=== PATIENT | male | born 1965 | race Caucasian/White ===

== ENCOUNTER 2017-11-12 08:02 | Outpatient (CLI) | payer OTHER ==
--- NOTE | 2017-11-12 10:37 | XRAY Report ---
Procedure Date: 11/12/2017 Accession Number: [id number] / [id number] Procedure: XR - Hip w/Pelvis 2-3V RT CPT Code: FULL RESULT: EXAM: Hip w/Pelvis 2-3V RT DATE: 11/12/2017 10:28 AM CLINICAL HISTORY: Z00.00, PAIN IN RT HIP COMPARISON: None. TECHNIQUE: 1 view of the pelvis and 1 view of the hip. FINDINGS: Bones: Normal. No fracture or bone lesion. Joints: Status post left total hip arthroplasty without evidence of hardware failure, limited visualization distal tip of the stem is not seen. There is moderate joint space loss of the right femoral acetabular joint. Soft Tissues: Normal. No soft tissue swelling. IMPRESSION: Degenerative changes of the right hip as described. [facility]
--- NOTE | 2017-11-12 10:39 | XRAY Report ---
Procedure Date: 11/12/2017 Accession Number: [id number] / [id number] Procedure: XR - Lumbar Spine Complete CPT Code: FULL RESULT: EXAM: Lumbar Spine Complete DATE: 11/12/2017 10:28 AM CLINICAL HISTORY: Z00.00, PAIN IN RT HIP COMPARISON: None. TECHNIQUE: 2 views. FINDINGS: Alignment: Mild dextroconvex lumbar scoliosis. Bones: Five csx-yqi-phglbge lumbar vertebral bodies are present. No fractures or bone lesions. Disks: Multilevel degenerative changes of the lumbar spine with loss of disc space height and endplate sclerosis with marginal osteophytes. Facets: No degenerative changes. Sacroiliac Joints: Unremarkable. Soft Tissues: Normal. The visualized bowel gas pattern is normal. IMPRESSION: Dextroscoliosis with multilevel degenerative changes of lumbar spine. [facility]
[2017-11-12 12:01] LABS: BUN - BLOOD UREA NITROGEN 15 mg/dL (6-20); CARBON DIOXIDE - CO2 26 mmol/L (21-32); CHLORIDE 106 mmol/L (101-111); CHOL/HDL RATIO 3.8 (<5.0); CHOLESTEROL 215 mg/dL; CREATININE 0.8 mg/dL (0.6-1.2); GFR - MDRD 102 (>89); GLUCOSE 104 mg/dL (70-100); HDL CHOLESTEROL 57 mg/dL; LDL CHOLESTEROL,CALCULATED 125 mg/dL; LDL/HDL RATIO 2.2 (<3.6); SODIUM 140 mmol/L (135-145); VLDL CHOLESTEROL 33 mg/dL
== END 2017-11-12 08:03 | disposition home or self-care (01) ==
LOC: LAB.F 08:02 → DI 08:03
PROVIDERS: ATTEND Internal Medicine
DX: Z00.00 Encounter for general adult medical examination without abnormal findings (principal); M16.11 Unilateral primary osteoarthritis, right hip; Z96.642 Presence of left artificial hip joint; M51.36 Other intervertebral disc degeneration, lumbar region; M41.86 Other forms of scoliosis, lumbar region
CPT/HCPCS: 36415; 72110; 80048; 80061; 83721

== ENCOUNTER 2018-03-12 07:29 | Outpatient (CLI) | payer OTHER ==
--- NOTE | 2018-03-12 14:59 | MRI Report ---
Reason: CHRONIC LBP W/RT RADICULOPATHY(L5) Procedure Date: 03/12/2018 Accession Number: [id number] / [id number] Procedure: MRI - Lumbar Spine W/O CPT Code: FULL RESULT: EXAM: MRI LUMBAR SPINE WITHOUT CONTRAST EXAM DATE: 03/12/2018 08:11 AM. CLINICAL HISTORY: Chronic low back pain with right radiculopathy(L5). Low back pain with right L5 radiculopathy. COMPARISON: LUMBAR SPINE COMPLETE 11/12/2017 10:01 AM. TECHNIQUE: Multiplanar, multisequence T1-weighted and fluid-sensitive sequences of the lumbar spine from T12 to S1 without contrast. Other: None. FINDINGS: Spinal Canal: The conus terminates at T12-L1. The conus medullaris and cauda equina are unremarkable. Alignment: Mild, 16 degree, dextrorotatory scoliosis is seen centered at L2. Minimal multilevel listhesis is seen, includin mm spondylolisthesis at L4-L5, 2 mm retrolisthesis at L1-L2. Bone Marrow: Five qsz-yzz-ytzwsjg lumbar vertebral bodies are assumed. No acute fractures or bone lesions. No bone marrow replacement. Old mild compression deformities of the L2 and T11 superior endplates is seen. Concavity is noted. No bone marrow or paraspinous edema is seen. An oval 13 mm hemangioma is noted in the L1 vertebral body. Disk Levels/Facets: T12-L1: Unremarkable. L1-L2: Minimal retrolisthesis. Minimal dorsal disk bulge is seen. Mild anterior bulge of disk/osteophyte complex. No stenosis. L2-L3: Minimal lateral and ventral disk bulge is seen. Mild asymmetric left lateral disk bulge is noted within the concavity of the scoliotic curvature. No stenosis. L3-L4: Moderate loss of disk space height is seen with T2 hypointense disk signal. Mild circumferential disk bulge is seen. Asymmetric moderate left lateral osteophyte formation is seen. Effacement of the ventral thecal sac and descending L4 nerve roots is seen. Mild bilateral proximal lateral recess stenosis. Effacement of exited left L3 nerve root lateral to the foramen is noted. No foraminal stenosis. L4-L5: Mild degenerative facet change. Minimal spondylolisthesis. Moderate loss of disk space height. Vacuum cleft phenomenon and T2 hypointense disk signal. Right lateral diskogenic endplate irregularity and signal abnormality. Mild circumferential disk bulge. Moderate asymmetric right lateral protrusion of disk/osteophyte complex. Mild effacement of the thecal sac and descending L5 nerve roots. Mild right lateral recess stenosis. Effacement of exited right L4 nerve root lateral to the foramen is noted. No central foraminal stenosis. L5-S1: Unremarkable. Mild degenerative facet change. Musculature: Normal. No edema or fatty atrophy. Other: The partially visualized retroperitoneum is unremarkable. Note is made of an exophytic oval 22 mm cyst projected posteriorly from the upper pole of the left kidney. IMPRESSION: 1. Mild dextrorotatory scoliosis centered at L2. 2. Spondylosis throughout the lumbar spine. Minimal spondylolisthesis at L4-L5. Minimal retrolisthesis at L1-L2. 3. L4-L5: Effacement of exited right L4 nerve root lateral to the foramen. This is secondary to asymmetric right lateral protrusion of disk/osteophyte complex. Right mild lateral recess stenosis. 4. L3-L4: Spondylosis. Bilateral mild proximal lateral recess stenosis. Comment: The following findings are so common in adults without low back pain that while we report their presence, they must be interpreted with caution and in the context of the clinical situation. (Reference Nellk et al, Spine 2001) Prevalence of findings in patients without low back pain: Disk degeneration (any evidence): 92% Disk desiccation/T2 signal loss: 83% Disk height loss: 56% Disk bulge: 64% Disk protrusion: 32% Annular tear/high intensity zone: 38% [facility]
== END 2018-03-12 07:30 | disposition home or self-care (01) ==
LOC: DI 07:29
PROVIDERS: ATTEND Orthopaedic Surgery
DX: M51.36 Other intervertebral disc degeneration, lumbar region (principal); M47.9 Spondylosis, unspecified; M43.16 Spondylolisthesis, lumbar region; M41.9 Scoliosis, unspecified
CPT/HCPCS: 72148

== ENCOUNTER 2018-04-25 16:47 | Emergency (ER) | payer OTHER ==
[2018-04-25 17:26] VITALS: BP 127/79
[2018-04-25] MEDS ORDERED: oxyCODONE 5 MG TABLET PO STA (17:49)
--- NOTE | 2018-04-25 17:51 | ED Physician Documentation ---
PD HPI UPPER EXT INJURY - Stated complaint Stated Complaint: SHOULDER PX - Chief complaint Chief Complaint: Ext Problem - History obtained from History obtained from: Patient - History of Present Illness Location: Right, Shoulder Type of injury: Other (He was lifting boxes today and felt a pop across the top of the right shoulder now severe pain and cannot lift it anymore. He has a history of rotator cuff problems on the other side with a surgery. No previous problems with the right shoulder.) Review of Systems Constitutional: denies: Fever, Chills Cardiac: denies: Chest pain / pressure, Palpitations Respiratory: denies: Dyspnea, Cough GI: reports: Reviewed and negative PD PAST MEDICAL HISTORY - Present Medications Home Medications: Ambulatory Orders Medication Instructions Recorded Confirmed Oxycodone HCl/Acetaminophen 1 - 2 each PO Q6H PRN #14 tablet 04/25/18 [Percocet 5-325 mg Tablet] RX: Meloxicam 15 mg PO DAILY 04/25/18 04/25/18 - Allergies Allergies/Adverse Reactions: Allergies Allergy/AdvReac Type Severity Reaction Status Date / Time No Known Drug Allergies Allergy Verified 04/25/18 17:26 PD ED PE NORMAL - Vitals Vital signs reviewed: Yes - General General: Alert and oriented X 3, No acute distress - Neck Neck: Supple, no meningeal sign, No bony TTP - Extremities Extremities: Other (Right shoulder is without tenderness or deformity but he cannot abduct at all. He has significant pain with forced internal or external rotation and positive supraspinatus testing. He has normal neurovascular function in the hand and over the deltoid.) - Neuro Neuro: Alert and oriented X 3, Normal speech Results - Vitals Vitals: Vital Signs - 24 hr 04/25/18 17:24 Temperature 36.3 C L Heart Rate 55 L Respiratory 16 Rate Blood Pressure 127/79 O2 Saturation 97 Oxygen O2 Source Room air - Rads (name of study) 3v R shoulder Radiology: EMP read contemporaneously (DJD< no frx) PD MEDICAL DECISION MAKING - ED course ED course: 52-year-old gentleman with clinically what sounds very consistent with a right rotator cuff tear. X-rays were negative for acute pathology. He was placed in a sling but we discussed the limitations of a sling and the need for range of motion exercises. Departure - Departure Disposition: 01 Home, Self Care Clinical Impression: Rotator cuff tear, right Condition: Good Record reviewed to determine appropriate education?: Yes Instructions: ED Torn Rotator Cuff Follow-Up: [facility] [Provider Group] - Within 1 week Prescriptions: Oxycodone HCl/Acetaminophen [Percocet 5-325 mg Tablet] 1 - 2 each PO Q6H PRN #14 tablet PRN Reason: pain Comments: He can wear the sling for comfort for a day or 2 but you have to come out of it a couple of times a day to do exercises as shown. Return for new or worsening symptoms. Follow-up with the orthopedics clinic, call tomorrow for an appointment. Do not wear the sling for more than 2-3 days[address] not drink or drive while taking narcotic pain medication. Note that many narcotic pain relievers also contain Tylenol/acetaminophen. Please ensure that your total dose of acetaminophen from all sources does not exceed 3 g (3000 mg) per day. You may get constipated while on this medication. Take a stool softener such as Colace twice a day while you are on it. Also add an sock-jyl-qrkyahm laxative such as senna or MiraLAX on any day that you do not have a bowel movement. If you received a narcotic pain medication or sedative while in the emergency department, do not drive for the next 24 hours. Forms: Activity restrictions Discharge Date/Time: 04/25/18 18:26
--- NOTE | 2018-04-25 19:12 | XRAY Report ---
Reason: Pain Procedure Date: 04/25/2018 Accession Number: [id number] / [id number] Procedure: XR - Shoulder 3 View RT CPT Code: FULL RESULT: EXAM: RIGHT SHOULDER RADIOGRAPHY EXAM DATE: 04/25/2018 06:17 PM. CLINICAL HISTORY: Sudden right shoulder pain when lifting a box. COMPARISON: None. TECHNIQUE: 3 views. FINDINGS: Bones: No fracture or bone destructive process. Joints: No subluxation. Mild glenohumeral DJD. Glenohumeral appears unremarkable. Unremarkable acromiohumeral interval. Soft tissues: No definite periarticular calcification identified. IMPRESSION: 1. Mild acromioclavicular DJD. 2. No fracture or dislocation. [facility]
== END 2018-04-25 18:26 | disposition home or self-care (01) ==
LOC: ED 16:47
DX: M75.101 Unspecified rotator cuff tear or rupture of right shoulder, not specified as traumatic (principal); X50.0XXA Overexertion from strenuous movement or load, initial encounter
CPT/HCPCS: 73030; 99283; A9270

== ENCOUNTER 2018-06-08 14:42 | Outpatient (CLI) | payer OTHER ==
--- NOTE | 2018-06-09 13:50 | MRI Report ---
Reason: RT SHOULDER PAIN Procedure Date: 06/08/2018 Accession Number: [id number] / [id number] Procedure: MRI - Shoulder RT W/O CPT Code: FULL RESULT: EXAM: RIGHT SHOULDER MRI WITHOUT CONTRAST EXAM DATE: 06/08/2018 03:42 PM. CLINICAL HISTORY: Right shoulder pain after lifting boxes. COMPARISON: SHOULDER 3 VIEW RT 04/25/2018 6:02 PM. TECHNIQUE: Multiplanar, multisequence T1-weighted and fluid-sensitive sequences of the shoulder without contrast. Other: None. FINDINGS: Acromioclavicular Region: The acromion is type II. Mild osteoarthritis acromioclavicular joint with mild spurring. Acromioclavicular joint is without increased fluid. The coracoacromial and coracoclavicular ligaments are intact. Moderate quantity of fluid subacromial subdeltoid bursa. Glenohumeral Region: No subluxation. No effusion or loose bodies. Mild chondromalacia glenohumeral joint. The glenohumeral ligaments and joint capsule are unremarkable. Bone Marrow: No fracture, marrow edema or bone lesions. Labrum: The labrum is unremarkable on this nonarthrographic study. Musculature/Rotator Cuff: Complete tear distal supraspinatus tendon 1.5 cm in AP dimension and 1.7 cm in transverse dimension. Extensive interstitial tear of the infraspinatus tendon with complete partial-width tears anterior aspect and posterior aspect. Negative for subscapularis tendon tear. Supraspinatus muscle and the sub-scapularis muscle are without edema or atrophy. Edema is noted of the infraspinatus muscle. Teres minor tendon is intact. Teres minor muscle is negative for edema. Biceps Tendon: The biceps anchor is intact. Normal caliber low signal biceps tendon bicipital groove. Increase fluid biceps tendon sheath. Negative for biceps ang lesion. Other: The subcutaneous tissues are unremarkable. IMPRESSION: 1. Complete tear is noted of the supraspinatus tendon 1.7 cm in transverse dimension and 1.5 cm in AP dimension. 2. There is extensive diffuse interstitial tear infraspinatus musculotendinous junction and the infraspinatus tendon with infraspinous muscle edema and probable partial width complete tears anterior aspect and posterior aspect distal infraspinatus tendon. 3. Moderate quantity of fluid subacromial subdeltoid bursa. [facility] MUSCULOSKELETAL RADIOLOGY SECTION
== END 2018-06-08 14:43 | disposition home or self-care (01) ==
LOC: DI 14:42
PROVIDERS: ATTEND Orthopaedic Surgery
DX: M75.121 Complete rotator cuff tear or rupture of right shoulder, not specified as traumatic (principal)

== ENCOUNTER 2018-06-08 17:00 | Outpatient (CLI) | payer OTHER ==
--- NOTE | 2018-06-09 13:58 | MRI Report ---
Reason: PAIN IN RIGHT HIP DOWM THIGH Procedure Date: 06/08/2018 Accession Number: [id number] / [id number] Procedure: MRI - Hip RT W/O CPT Code: FULL RESULT: EXAM: RIGHT HIP MRI WITHOUT CONTRAST EXAM DATE: 06/08/2018 04:16 PM. CLINICAL HISTORY: Pain in right hip down thigh. Right leg numbness in toes. Right hip pain with pain extending into right leg. COMPARISON: HIP W/PELVIS 2-3V RT 11/12/2017 10:01 AM. TECHNIQUE: Multiplanar, multisequence T1-weighted and fluid-sensitive, small vjeps-tr-mvav sequences of the hip and large kgunw-ew-rhel sequences of the pelvis without contrast. Other: None. FINDINGS: Bones: No fractures or subluxations. No marrow edema or bone lesions. Trace marrow edema right sacrum adjacent to the sacroiliac joint (image 17 series 1101). Femoral head degenerative spurring. Right Hip: No acetabular retroversion. Femoral head/neck offset is within normal limits. No effusion or loose bodies. Moderate chondromalacia superior right hip. No definite labrum tear. The ligamentum teres is intact. Other Joints: Sacroiliac joints are without increased fluid. Bipolar left hip prosthesis without increased fluid or gross synovitis. Severe L5-S1 facet joint arthrosis. Musculature: No edema or fatty atrophy. The gluteus medius and minimus tendons are normal. The visualized hamstring tendons are normal. The ischiofemoral space is normal. Pelvic Cavity: The visualized viscera are unremarkable. No lymphadenopathy. No free fluid in the pelvis. Other: The visualized sciatic nerves are unremarkable. No bursitis. The subcutaneous tissues are unremarkable. IMPRESSION: Mild osteoarthritis of the right hip. [facility] MUSCULOSKELETAL RADIOLOGY SECTION
== END 2018-06-08 17:01 | disposition home or self-care (01) ==
LOC: DI 17:00
PROVIDERS: ATTEND Orthopaedic Surgery
DX: M16.11 Unilateral primary osteoarthritis, right hip (principal); Z96.642 Presence of left artificial hip joint; M75.121 Complete rotator cuff tear or rupture of right shoulder, not specified as traumatic

== ENCOUNTER 2018-07-08 06:43 | Outpatient (CLI) | payer OTHER ==
[2018-07-08 07:10] LABS: CALCIUM 9.3 mg/dL (8.5-10.3); CREATININE 0.7 mg/dL (0.6-1.2)
[2018-07-08 07:57] LABS: BASOPHILS % (AUTO) 0.4 %; EOSINOPHILS # (AUTO) 0.1 10^3/uL (0.0-0.7); EOSINOPHILS % (AUTO) 1.3 %; HGB - HEMOGLOBIN 13.6 g/dL (14.0-18.0); LYMPHOCYTES # (AUTO) 2.3 10^3/uL (1.5-3.5); LYMPHOCYTES % (AUTO) 25.9 %; MEAN CORPUSCULAR HEMOGLOBIN 29.1 pg (27.0-31.0); MEAN CORPUSCULAR HGB CONC 33.8 g/dL (32.0-36.0); MEAN CORPUSCULAR VOLUME 86.1 fL (80.0-94.0); MEAN PLATELET VOLUME 7.8 fL (7.4-11.4); MONOCYTES # (AUTO) 0.7 10^3/uL (0.0-1.0); MONOCYTES % (AUTO) 7.5 %; NEUTROPHILS # (AUTO) 5.8 10^3/uL (1.5-6.6); NEUTROPHILS % (AUTO) 64.9 %; PLT - PLATELET COUNT 318 10^3/uL (130-450); RED BLOOD COUNT 4.67 10^6/uL (4.70-6.10); RED CELL DISTRIBUTION WIDTH 13.6 % (12.0-15.0); WHITE BLOOD COUNT 8.9 x10^3/uL (4.8-10.8)
== END 2018-07-08 06:44 | disposition home or self-care (01) ==
LOC: LAB 06:43
PROVIDERS: ATTEND Orthopaedic Surgery Sports Medicine
DX: Z01.818 Encounter for other preprocedural examination (principal); M75.121 Complete rotator cuff tear or rupture of right shoulder, not specified as traumatic; M75.41 Impingement syndrome of right shoulder
CPT/HCPCS: 36415; 80048; 85025; 93005

== ENCOUNTER 2018-07-13 05:47 | Day surgery (SDC) | payer OTHER ==
[2018-07-13] MEDS ORDERED: ceFAZolin 2 GM/50 ML 2 GM/50 ML BAG IV ONE (06:29)
[2018-07-13] MEDS ORDERED: LACTATED RINGERS 1,000 ML IV ONE (06:39)
--- NOTE | 2018-07-13 07:01 | ANESTHESIA ---
Pre-Anesthesia VS, & Labs - Diagnosis Right rotator cuff tear, impingement - Procedure right shoulder arthroscopic rotator cuff tear repair subacromial decompression Vital Signs: Temp Pulse Resp BP Pulse Ox 36.8 C 56 L 15 110/83 H 96 07/13/18 06:25 07/13/18 06:25 07/13/18 06:25 07/13/18 06:25 07/13/18 06:25 Height 5 ft 10 in Weight (kg) 85.6 kg Body Mass Index 26.5 Home Medications and Allergies Home Medications: Ambulatory Orders Calcium Carbonate [Calcium] 1,200 mg PO DAILY 07/08/18 Cholecalciferol (Vitamin D3) [Vitamin D3] 1,000 unit PO DAILY 07/08/18 Meloxicam 15 mg PO DAILY 04/25/18 Calcium Carbonate [Calcium] 1,200 mg PO DAILY 07/08/18 Cholecalciferol (Vitamin D3) [Vitamin D3] 1,000 unit PO DAILY 07/08/18 Allergies/Adverse Reactions: Allergies Allergy/AdvReac Type Severity Reaction Status Date / Time No Known Drug Allergies Allergy Verified 04/25/18 17:26 Anes History & Medical History - Medical History Cardiovascular: reports: Hypertension, High cholesterol, Deep vein thrombosis (As a teen after hip surgery) Pulmonary: reports: None Gastrointestinal: reports: Ulcers (resolved), Chronic diarrhea Urinary: reports: None Neuro: reports: None Musculoskeletal: reports: Osteoarthritis, Chronic back pain (Currently getting RADHA) Endocrine/Autoimmune: reports: None Blood Disorders: reports: None Skin: reports: None Smoking Status: Former smoker (Quit 5 years ago. 50 pack year history) Psychosocial: reports: Cannabis (Last use yesterday) - Surgical History General: Colonoscopy, Other Orthopedic: Hip replacement, Rotator cuff repair, Other Exam General: Alert, Oriented x3, Cooperative, No acute distress Dental: WNL Mouth Openin Fingerbreadth Neck Mobility: Normal Mallampati classification: III Thyromental Distance: 4-6 cm Respiratory: Lungs clear, Normal breath sounds, No respiratory distress, No accessory muscle use Cardiovascular: Regular rate, Normal S1, Normal S2, No murmurs Mental/Cognitive Status: Alert/Oriented X3, Normal for patient Plan Anesthesia Type: General, Interscalene Block (Right) Regional Block: Per Surgeon's request for Post Op pain control Consent for Procedure(s) Verified and Reviewed: Yes Code Status: Attempt Resuscitation ASA classification: 2-Mild systemic disease Is this case an emergency?: No
[2018-07-13] MEDS ORDERED: ROPIVACAINE 0.5% PF 20 ML AMPULE ONE (07:02)
[2018-07-13] MEDS ORDERED: EPINEPHrine 1 MG/ML AMP ONE (07:15)
[2018-07-13] MEDS ORDERED: BUPIVACAINE 0.25%-EPI 1:200000 PF 30 ML VIAL ONE ×2 (07:15→08:03)
[2018-07-13] MEDS ORDERED: BUPIVACAINE 0.25%-EPI 1:200000 PF 30 ML VIAL SUBQ ONE ×2 (08:27)
[2018-07-13] MEDS ORDERED: DEXAMETHASONE 4 MG/ML VIAL IVP ONE (08:45)
[2018-07-13] MEDS ORDERED: KETOROLAC 30 MG/ML VIAL IVP ONE (08:45)
[2018-07-13] MEDS ORDERED: fentaNYL 100 MCG/2 ML VIAL IVP ONE (08:45)
[2018-07-13] MEDS ORDERED: PROPOFOL 200 MG/20 ML VIAL IVP ONE (08:45)
[2018-07-13] MEDS ORDERED: GLYCOPYRROLATE 1 MG/5 ML VIAL IVP ONE (08:45)
[2018-07-13] MEDS ORDERED: HYDROmorphone 1 MG/ML CARPUJECT IVP ONE (08:45)
[2018-07-13] MEDS ORDERED: LIDOCAINE-MPF 2% 5 ML VIAL IM ONE (08:45)
[2018-07-13] MEDS ORDERED: ACETAMINOPHEN 1,000 MG/100 ML 100 ML IV ONE (08:45)
[2018-07-13] MEDS ORDERED: MIDAZOLAM 2 MG/2 ML VIAL IVP ONE (08:45)
[2018-07-13] MEDS ORDERED: NEOSTIGMINE 1 MG/1 ML 10 ML MDV IVP ONE (08:45)
[2018-07-13] MEDS ORDERED: ONDANSETRON 4 MG/2 ML VIAL IVP ONE (08:45)
[2018-07-13] MEDS ORDERED: oxyCODONE 5 MG TABLET PO PRN (09:36)
[2018-07-13] MEDS ORDERED: ONDANSETRON 4 MG/2 ML VIAL IVP PRN (09:36)
--- NOTE | 2018-07-13 09:41 | IMMEDIATE POSTOPERATIVE NOTE ---
Immediate Postoperative Note - Procedure Note Procedure Date: 07/13/18 Pre-Op Diagnosis: RIGHT SHOULDER RCT, IMPINGEMENT Procedure: RIGHT SHOULDER SCOPE RCR, SAD Post-Op Diagnosis: SAME Primary Surgeon: DEVIN Anesthesia Type: General ET tube, Local, Regional block Complications: No complications Estimated Blood Loss (in cc): 10 Plan of Care: PT ALLAN PROCEDURE WELL. INST AND SPONGE COUNTS CORRECT. TRANSFERRED TO IN STABLE COND. FOLLOW STD RCR PROTOCOL
[2018-07-13 11:18] VITALS: BP 128/80
--- NOTE | 2018-07-14 10:03 | OPERATIVE REPORT ---
DATE OF SERVICE: 07/13/2018 Physician: Jonnie Bauman MD PREOPERATIVE DIAGNOSES 1. Right shoulder rotator cuff tear. 2. Right shoulder subacromial impingement. POSTOPERATIVE DIAGNOSES 1. Right shoulder rotator cuff tear. 2. Right shoulder subacromial impingement. PROCEDURES PERFORMED 1. Right shoulder arthroscopic rotator cuff repair, supraspinatus. 2. Right shoulder arthroscopic subacromial decompression, conversion to type I acromion. SURGEON: Jonnie Bauman MD CHILD CARE ASSOCIATE TEACHER: None. ANESTHESIOLOGIST: Please see anesthesia report. ANESTHESIA TYPE: General endotracheal anesthesia, as well as 30 mL of 0.25% Marcaine with epinephrine. FLUIDS ENTERED: Lactated Ringer's 1 mL. COMPRESSION DEVICE: Bilateral calf SCD boots. ESTIMATED BLOOD LOSS: Less than 10 mL ORTHOPEDIC IMPLANTS: Arthrex SureGene 5.5 mm BioComposite triple play anchor x2. HISTORY OF PRESENT ILLNESS AND INDICATIONS: Patient is a 53-year-old male who has had a right shoulder rotator cuff tear and was indicated for operative treatment. Please see previous discussion for risks, benefits, and alternatives. We discussed and highlighted risks, benefits, alternatives, preoperative area with the patient's mother present. Their questions are answered. Patient verbalizes he wished to proceed with operative treatment. Informed consent was given. INTRAOPERATIVE FINDINGS: Patient noted to have minimal fraying of the long head of the biceps less than 10%. Glenohumeral joint shows grade 1-2 chondromalacia, minimal labral fraying; no loose bodies appreciated. There is a full-thickness anterior supraspinatus tear and downsloping of the anterior aspect of the acromion. Post subacromial decompression, acromion is converted to a type 1. Rotator cuff is repaired to its near anatomic footprint, with good integrity of the repair with range of motion and stability of the repair. PROCEDURE: On 07/13/2018, patient identified in the preoperative care unit. He identifies his right shoulder as the operative site. This is signed by the operating surgeon. Patient received preoperative weight-based IV antibiotics. He is brought to the operating room, placed supine on the operating table. It should be noted that regional block was administered under ultrasound guidance prior to bringing him to the operating room. Patient has general anesthesia administered and is then placed in a sffn-fjek-lgol lateral decubitus position with appropriately placed axillary roll to avoid encumbrance of the axilla. Down leg is gel padded. SCD boots are in place. Head, neck, and extremities are placed in a comfortable and safe position to void peripheral nerve stretch or compression, beanbag positioner is used. At this point, right upper extremity is draped out, minimal shaving needed, and then the right upper extremity and shoulder are pre-scrubbed with Hibiclens solution and dried, and then prepped and draped in the usual sterile fashion. At this point, 15 pounds of traction are placed on the arm. Surgical pause identifies the right shoulder as the operative site, and at this point, local anesthetic is infused anteriorly, posteriorly, and laterally. A small incision is made posteriorly. Scope is introduced into the glenohumeral joint, and diagnostic arthroscopy is carried out. Please see operative findings. At this point, outside-in technique is used with a spinal needle to determine anterior portal site, which is made in the rotator interval. The minimal fraying of the biceps is gently debrided, leaving as much healthy tissue as possible, well over 90+ percent. Undersurface of the tear of the supraspinatus is identified using a spinal needle and a PDS which was used to tapan this, and then attention is directed to the subacromial space. At this point, a lateral incision is made in line with the posterior aspect of the clavicle, and then a shaver is introduced into the subacromial space. Subacromial decompression of bursa and fibrous tissue is performed. Hemostasis achieved with the arthroscopic heating device with appropriate flow to avoid thermal injury, and then a bur is used to debride the anterior aspect of the acromion to convert to type 1 acromion. The free edge of the rotator cuff is debrided using a shaver and is noted to have some slight delamination posteriorly. The rotator cuff footprint is debrided to freshly bleeding bone but leaving good intact firm bone. Once it is appropriately debrided, then sequentially two anchors were placed, one anterior just posterior to the biceps, and then one posterior anchor. The anterior three sutures dalton placed in a simple fashion, taking care to avoid encumbrance of the biceps. The posterior sutures dalton placed, two of which dalton initially placed through the deeper layer and then subsequently through the more superficial delaminated layer to bring those two layers together at the same time, reducing the rotator cuff to the footprint. It should be noted that this area of delamination was also debrided to freshen it up and increase the biologic response. At this point, from back to front, the sutures are tied and suture limbs are cut with appropriate tails. The subacromial space exam of the rotator cuff is noted to be in its near- anatomic footprint with good integrity of the repair. Hemostasis is achieved. Copious irrigation is performed. At this point, instruments are removed. Arthroscopic portals are closed using interrupted nylon suture. It should be noted that for placement of the anchors, auxiliary anterolateral portal was created. At this point, skin is washed, dried, local anesthetic is infused around the incisions, Xeroform dressing applied to the incisions, dry sterile dressing, and then micropore tape. Patient tolerated the procedure well. Instrument and sponge counts are correct. Patient is transferred to the recovery room in stable condition. Patient will follow standard postoperative right shoulder rotator cuff repair protocol. This is reviewed with him preoperatively as well as with patient's mother postoperatively. Arthroscopic photos are reviewed with the patient's mother in the waiting room. We will follow up in 10-14 days, or sooner on an as-needed basis. Patient denied any contraindication to medications and plan and was given perioperative antibiotics and perioperative analgesic prescriptions. He would use these as directed. They will notify us prior to the followup if problems or questions should arise. TD: 07/14/2018 08:13 FAREED
== END 2018-07-13 05:48 | disposition home or self-care (01) ==
LOC: SDS 05:47
PROVIDERS: ATTEND Orthopaedic Surgery Sports Medicine
PROC: 0RNJ4ZZ Release Right Shoulder Joint, Percutaneous Endoscopic Approach (ICD-10-PCS; 2018-07-13)
PROC: 0LQ14ZZ Repair Right Shoulder Tendon, Percutaneous Endoscopic Approach (ICD-10-PCS; principal; 2018-07-13 07:30)
DX: S46.011A Strain of muscle(s) and tendon(s) of the rotator cuff of right shoulder, initial encounter (principal); M75.41 Impingement syndrome of right shoulder; M25.811 Other specified joint disorders, right shoulder; M94.211 Chondromalacia, right shoulder; Z87.891 Personal history of nicotine dependence
CPT/HCPCS: 29826; 29827; C1713; J0131; J0690; J1170; J7120

== ENCOUNTER 2019-01-27 18:01 | Outpatient (CLI) | payer OTHER ==
[2019-01-27 19:01] LABS: ALBUMIN 4.7 g/dL (3.2-5.5); ALBUMIN/GLOBULIN RATIO 1.5 (1.0-2.2); CALCIUM 9.4 mg/dL (8.5-10.3); CREATININE 0.8 mg/dL (0.6-1.2); TOTAL PROTEIN 7.9 g/dL (6.7-8.2)
--- NOTE | 2019-01-30 14:50 | XRAY Report ---
Reason: CERVICAL DISC DISORDER WITH RADICULOPATHY Procedure Date: 01/27/2019 Accession Number: [id number] / [id number] Procedure: XR - Cervical Spine w/Flex/Ext CPT Code: FULL RESULT: EXAM: CERVICAL SPINE RADIOGRAPHY EXAM DATE: 01/27/2019 06:26 PM. CLINICAL HISTORY: Chronic neck pain, recent bouts of bilateral arm numbness in the morning for 1 month, no known injury. COMPARISONS: None. TECHNIQUE: 7 views. FINDINGS: Alignment: No spondylolisthesis, abnormal motion or scoliosis. Bones: The cervical vertebral bodies and posterior elements are well-visualized from the skull base through C7-T1. No fractures or bone lesions. Disks: Normal. Disk heights are maintained. Facets: No degenerative disease. Neural Foramina: The neural foramina have bony patency bilaterally. Soft Tissues: Normal. No prevertebral soft tissue swelling. The visualized lung apices are clear. IMPRESSION: Negative cervical spine radiography. [facility]
== END 2019-01-27 18:02 | disposition home or self-care (01) ==
LOC: DI 18:01
PROVIDERS: ATTEND Family Medicine
DX: M50.10 Cervical disc disorder with radiculopathy, unspecified cervical region (principal); B35.1 Tinea unguium
CPT/HCPCS: 36415; 72052; 80053

== ENCOUNTER 2019-02-20 16:51 | Outpatient (CLI) | payer OTHER | END 2019-02-20 16:52 | disposition home or self-care (01) | LOC: LAB 16:51 | PROVIDERS: ATTEND Family Medicine | DX: M54.5 Low back pain (principal) ==

== ENCOUNTER 2019-02-24 05:20 | Outpatient (CLI) | payer OTHER | END 2019-02-24 05:21 | disposition home or self-care (01) | LOC: LAB 05:20 | PROVIDERS: ATTEND Family Medicine | DX: M54.5 Low back pain (principal); G89.29 Other chronic pain | CPT/HCPCS: 36415; 86812 ==

== ENCOUNTER 2019-02-25 07:52 | Outpatient (CLI) | payer OTHER ==
--- NOTE | 2019-02-26 01:13 | MRI Report ---
Reason: CERVICAL DISC DISORDER WITH RADICULOPATHY Procedure Date: 02/25/2019 Accession Number: [id number] / [id number] Procedure: MRI - Cervical Spine W/O CPT Code: Final Report FULL RESULT: EXAM: MRI CERVICAL SPINE WITHOUT CONTRAST EXAM DATE: 02/25/2019 08:32 AM. CLINICAL HISTORY: CERVICAL DISC DISORDER WITH RADICULOPATHY. COMPARISONS: CERVICAL SPINE W/FLEX/EXT 01/27/2019 6:13 PM. TECHNIQUE: Multiplanar, multisequence T1-weighted and fluid-sensitive sequences of the cervical spine without contrast. Other: None. FINDINGS: Neurologic Structures: The visualized posterior fossa structures are unremarkable. No signal abnormality in the visualized spinal cord. Alignment: No scoliosis or spondylolisthesis. Bone Marrow: No gross fractures or bone lesions. No marrow edema. Interspace Levels/Facets: C1-C2: Unremarkable. C2-C3: Unremarkable. C3-C4: Unremarkable. C4-C5: Unremarkable. C5-C6: Mild disk space narrowing. Disk/endplate osteophyte complex mildly narrows the central canal without cord impingement. Foramina appear patent bilaterally. C6-C7: Mild disk space narrowing. Small disk/endplate osteophyte complex without cord impingement. Uncinate process hypertrophy with moderate to severe right-sided foraminal stenosis. Left foramen appears patent. There are findings consistent with a small region of calcification/ossification of the posterior longitudinal ligament dorsal to C6, no cord impingement. C7-T1: Unremarkable. Musculature: Normal. No edema or fatty atrophy. Other: The paravertebral and prevertebral soft tissues are normal. IMPRESSION: 1. There is mild disk space narrowing at C5-C6 with disk/endplate osteophyte mildly narrowing the central canal. No cord impingement or foraminal stenosis. 2. At C6-C7, uncinate process hypertrophy is producing moderate to severe right-sided foraminal stenosis. No cord impingement. Correlate with right C7 symptoms. RADIA
== END 2019-02-25 07:53 | disposition home or self-care (01) ==
LOC: DI 07:52
PROVIDERS: ATTEND Family Medicine
DX: M50.10 Cervical disc disorder with radiculopathy, unspecified cervical region (principal); M48.02 Spinal stenosis, cervical region; M25.78 Osteophyte, vertebrae
CPT/HCPCS: 72141

== ENCOUNTER 2019-04-09 05:46 | Emergency (ER) | payer OTHER ==
--- NOTE | 2019-04-09 05:52 | ED Physician Documentation ---
History of Present Illness - Stated complaint Stated Complaint: RIGHT SHOULDER/ARM PX - Additonal information Additional information: This is a 53-year-old male with a history of rotator cuff repair on the right who presents with right shoulder discomfort. Patient uses hands a lot and his work, he lifts trays out of the oven, but he states he did not have any straining event or clear injury to his shoulder in recent days. Today he woke up and he had discomfort over the right shoulder which is worse when he raises his arm past 90 degrees or when he crosses his right arm across his chest. He denies any fever or redness or swelling of the shoulder he states his rotator cu ff repair with Dr. Rogel was 9 months ago, and he has been doing well since that time.No chest pain, or shortness of breath Review of Systems Constitutional: denies: Fever Cardiac: denies: Chest pain / pressure Respiratory: denies: Dyspnea PD PAST MEDICAL HISTORY - Past Medical History Cardiovascular: Hypertension, High cholesterol, Deep vein thrombosis (As a teen after hip surgery) Respiratory: None Neuro: None Endocrine/Autoimmune: None GI: Ulcers (resolved), Chronic diarrhea : None HEENT: None Psych: Claustrophobia Musculoskeletal: Osteoarthritis, Chronic back pain (Currently getting RADHA) Derm: None - Past Surgical History Past Surgical History: Yes General: Colonoscopy, Other Ortho: Hip replacement, Rotator cuff repair, Other - Present Medications Home Medications: Ambulatory Orders Medication Instructions Recorded Confirmed Meloxicam 15 mg PO DAILY 04/25/18 04/09/19 - Allergies Allergies/Adverse Reactions: Allergies Allergy/AdvReac Type Severity Reaction Status Date / Time No Known Drug Allergies Allergy Verified 04/09/19 05:57 - Social History Does the pt smoke?: No Smoking Status: Former smoker (Quit 5 years ago. 50 pack year history) Does the pt drink ETOH?: Yes Does the pt have substance abuse?: No - Immunizations Immunizations are current?: Yes - POLST Patient has POLST: No PD ED PE NORMAL - Vitals Vital signs reviewed: Yes - General General: Alert and oriented X 3, No acute distress - Neck Neck: Supple, no meningeal sign - Cardiac Cardiac: RRR, No murmur - Respiratory Respiratory: No respiratory distress, Clear bilaterally - Abdomen Abdomen: Soft, Non distended - Derm Derm: Warm and dry - Extremities Extremities: No deformity, Other (Mild tenderness palpation over the anterior superior aspect of the deltoid. Shoulders normal appearance without erythema or edema. Patient has good range of motion of the shoulder, however abduction past 90 degrees does cause pain. He has good strength with empty can test, and with internal and external rotation. Sensation is intact light touch over the arm, specifically in the distribution of the median, ulnar, radial, and axillary nerves.) - Neuro Neuro: Alert and oriented X 3 - Psych Psych: Normal mood, Normal affect Results - Vitals Vitals: Vital Signs - 24 hr 04/09/19 04/09/19 05:50 07:00 Temperature 36.8 C Heart Rate 82 75 Respiratory 16 16 Rate Blood Pressure 153/100 H 148/90 H O2 Saturation 99 100 Oxygen O2 Source Room air PD MEDICAL DECISION MAKING - ED course ED course: Patient presents with right shoulder pain, he had rotator cuff surgery around 9 months ago. He he has good range of motion of the shoulder though does have pain with abduction above 90 degrees, or crossing his arm. This raises my suspicion for impingement. X-ray shows no acute osseous abnormality. The location of his tenderness is not consistent with DVT, and there are no signs of infection or other more nefarious pathology at this time. He has no chest pain or shortness of breath and this is certainly musculoskeletal problem on my examination, no signs of cardiac etiology. I discussed rest, ice, NSAIDs, and follow-up with Dr. Bauman. Patient agrees with this plan and was discharged home in good condition. Departure - Departure Disposition: 01 Home, Self Care Clinical Impression: Shoulder pain Condition: Good Follow-Up: Jonnie Bauman MD [Provider Admit Priv/Credential] - (Within 1-2 weeks) Comments: You were seen today for shoulder pain. Your x-ray does not show any acute new problems with the shoulder, given your exam I am concerned you might have a bursitis or impingement syndrome. I recommend using nonsteroidal anti- inflammatory such as ibuprofen 600 mg every 6 hours, and resting the shoulder. perform gentle range of motion exercises such as circling of the shoulder to prevent frozen shoulder. If you are developing fever, redness of the shoulder, weakness in the hand, or other concerning symptoms return to the emergency department. Otherwise please follow-up with Dr. Bauman for a recheck. Discharge Date/Time: 04/09/19 07:00
--- NOTE | 2019-04-09 06:44 | XRAY Report ---
Reason: R shoulder pain, Hx rotator cuff repair Procedure Date: 04/09/2019 Accession Number: [id number] / [id number] Procedure: XR - Shoulder 3 View RT CPT Code: Final Report FULL RESULT: EXAM: RIGHT SHOULDER RADIOGRAPHY EXAM DATE: 04/09/2019 06:10 AM. CLINICAL HISTORY: History of prior rotator cuff surgery in June. Right-sided shoulder pain and decreased range of motion since 4 PM. COMPARISON: SHOULDER 3 VIEW RT 04/25/2018 6:02 PM. TECHNIQUE: 3 views. FINDINGS: Bones: No acute displaced fractures or suspicious bony lesion. Joints: No dislocation. There is mild to moderate degenerative change about the shoulder. Soft Tissues: No significant soft tissue swelling. IMPRESSION: No acute osseous abnormality demonstrated. RADIA
[2019-04-09 07:13] VITALS: BP 148/90
== END 2019-04-09 07:00 | disposition home or self-care (01) ==
LOC: ED 05:46
DX: M25.511 Pain in right shoulder (principal); I10 Essential (primary) hypertension; Z87.891 Personal history of nicotine dependence; Z86.718 Personal history of other venous thrombosis and embolism
CPT/HCPCS: 99282; 99283

== ENCOUNTER 2019-08-29 10:36 | Outpatient (CLI) | payer BC ==
--- NOTE | 2019-08-30 03:44 | XRAY Report ---
Reason: BILATERAL PRIMARY OSTEOARTHRITIS OF KNEE Procedure Date: 08/29/2019 Accession Number: [id number] / [id number] Procedure: XR - Knee 3 View RT CPT Code: Final Report FULL RESULT: EXAM: RIGHT KNEE RADIOGRAPHY EXAM DATE: 08/29/2019 10:51 AM. CLINICAL HISTORY: Chronic right knee pain COMPARISON: None. TECHNIQUE: 3 views. FINDINGS: Bones: Normal. No fractures or bone lesions. Joints: No significant arthritic changes. No effusion. No subluxations. Soft Tissues: Peripheral vascular disease. No soft tissue swelling. IMPRESSION: Negative right knee radiography. RADIA
== END 2019-08-29 10:37 | disposition home or self-care (01) ==
LOC: DI 10:36
PROVIDERS: ATTEND Physician Assistant
DX: M25.561 Pain in right knee (principal)

== ENCOUNTER 2019-09-13 06:35 | Outpatient (CLI) | payer BC ==
--- NOTE | 2019-09-13 11:02 | MRI Report ---
Reason: FALL/KNEE INJURY Procedure Date: 09/13/2019 Accession Number: [id number] / [id number] Procedure: MRI - Knee RT W/O CPT Code: Final Report FULL RESULT: EXAM: RIGHT KNEE MRI WITHOUT CONTRAST EXAM DATE: 09/13/2019 07:57 AM. CLINICAL HISTORY: Fall/knee injury. Pain along medial knee and behind patella for past month. Pops and gives out while walking. No known trauma. COMPARISON: KNEE 3 VIEW RT 08/29/2019 10:44 AM. TECHNIQUE: Multiplanar, multisequence T1-weighted and fluid-sensitive sequences of the knee without contrast. Other: None. FINDINGS: Bones: Reactive marrow edema mid medial tibial plateau. Articular Cartilage: Local severe chondromalacia superior patellar apex. Severe focal chondromalacia medial trochlear groove. Severe chondromalacia mid medial tibial plateau. Moderate chondromalacia grade 3 mid medial femoral condyle. Medial Meniscus: Small free edge tear of posterior horn medial meniscus. Possible small free edge tear junction body and posterior horn medial meniscus. Lateral Meniscus: The lateral meniscus is intact. Cruciate Ligaments: The anterior and posterior cruciate ligaments are intact. Collateral Ligaments: The medial collateral and lateral collateral ligamentous structures are intact. Tendons: The quadriceps, patellar, semimembranosus, and popliteus tendons are unremarkable. Musculature: No edema or fatty atrophy. Other: Moderate quantity of fluid patellar recesses. No popliteal cyst. No loose bodies. The medial and lateral retinacula are intact. The subcutaneous tissues and fat pads are unremarkable. IMPRESSION: 1. Moderate quantity knee joint fluid. 2. Small free edge tears posterior horn medial meniscus and junction body and posterior horn medial meniscus. 3. Severe chondromalacia superior aspect patellar apex and medial trochlear groove. 4. Severe chondromalacia mid medial tibial plateau with reactive marrow edema and there is moderate chondromalacia mid medial femoral condyle. RADIA
== END 2019-09-13 06:36 | disposition home or self-care (01) ==
LOC: DI 06:35
PROVIDERS: ATTEND Physician Assistant
DX: S83.241A Other tear of medial meniscus, current injury, right knee, initial encounter (principal); M94.29 Chondromalacia, multiple sites; M25.461 Effusion, right knee

== ENCOUNTER 2020-03-25 11:31 | Emergency (ER) | payer BC ==
--- NOTE | 2020-03-25 12:55 | XRAY Report ---
PROCEDURE: Shoulder 3 View LT INDICATIONS: trauma TECHNIQUE: 3 views of the shoulder were acquired. COMPARISON: None. FINDINGS: Bones: No fractures or dislocations. There is moderate acromioclavicular joint degeneration. No danuta picious bony lesions. Visualized ribs appear intact. Soft tissues: There is a small calcification along the distal rotator cuff consistent with calcific t endinitis. IMPRESSION: 1. No fracture or dislocation. 2. Moderate acromioclavicular joint degeneration. 3. Calcific tendinitis of the distal rotator cuff. Reviewed by: Vel Pack MD on 03/25/2020 12:53 PM PST Approved by: Vel Pack MD on 03/25/2020 12:53 PM PST Station ID: [id number]
--- NOTE | 2020-03-25 12:55 | ED Physician Documentation ---
PD HPI UPPER EXT INJURY - Stated complaint Stated Complaint: LT SHOULDER PX - Chief complaint Chief Complaint: Trauma Ext - History obtained from History obtained from: Patient - Additonal information Additional information: 54-year-old gentleman with history of joint problems, mostly in the knees but also had some rotator cuff injuries on the right in the past. He slipped and fell today and fell on outstretched left arm and now has moderate left shoulder pain especially with movement. He states that the range of motion was better immediately after the fall than it is now. Review of Systems Constitutional: reports: Reviewed and negative Eyes: reports: Reviewed and negative Nose: reports: Reviewed and negative Throat: reports: Reviewed and negative PD PAST MEDICAL HISTORY - Past Medical History Cardiovascular: Hypertension, High cholesterol, Deep vein thrombosis (As a teen after hip surgery) Respiratory: None Neuro: None Endocrine/Autoimmune: None GI: Ulcers (resolved), Chronic diarrhea : None HEENT: None Psych: Claustrophobia Musculoskeletal: Osteoarthritis, Chronic back pain (Currently getting RADHA) Derm: None - Past Surgical History Past Surgical History: Yes General: Colonoscopy, Other Ortho: Hip replacement, Rotator cuff repair, Other - Present Medications Home Medications: Ambulatory Orders Medication Instructions Recorded Confirmed Meloxicam 15 mg PO DAILY 04/25/18 04/09/19 HYDROcod/ACETAM 5/325 [[place] 5/325] 1 - 2 tab PO Q6H PRN #15 tablet 03/25/20 - Allergies Allergies/Adverse Reactions: Allergies Allergy/AdvReac Type Severity Reaction Status Date / Time No Known Drug Allergies Allergy Verified 03/25/20 11:38 - Social History Does the pt smoke?: No Smoking Status: Former smoker (Quit 5 years ago. 50 pack year history) Does the pt drink ETOH?: Yes Does the pt have substance abuse?: No - Immunizations Immunizations are current?: Yes - POLST Patient has POLST: No PD ED PE NORMAL - Vitals Vital signs reviewed: Yes - General General: Alert and oriented X 3, No acute distress - HEENT HEENT: PERRL, EOMI - Neck Neck: Supple, no meningeal sign, No bony TTP - Extremities Extremities: Other (The left shoulder is nontender, he can only abduct to about 30 degrees, does much better passively. Painless forced internal rotation but painful forced external rotation. No deformity. Normal sensation of the deltoid, normal radial pulse.) - Neuro Neuro: Alert and oriented X 3, Normal speech Results - Vitals Vitals: Vital Signs - 24 hr 03/25/20 03/25/20 11:36 13:23 Temperature 36.8 C Heart Rate 59 L 75 Respiratory 20 18 Rate Blood Pressure 174/97 H 145/79 H O2 Saturation 98 99 Oxygen O2 Source Room air - Rads (name of study) L shoulder XR Radiology: EMP read contemporaneously (AC Joint DJD and calcific tendinitis) PD MEDICAL DECISION MAKING - ED course ED course: 54-year-old gentleman with gradual onset shoulder pain after an injury most consistent with rotator cuff sprain on the left. He has an orthopedist with whom he will follow up. Departure - Departure Disposition: 01 Home, Self Care Clinical Impression: Sprain of rotator cuff Qualifiers: Encounter type: initial encounter Laterality: left Qualified Code(s): S43.422A - Sprain of left rotator cuff capsule, initial encounter Condition: Good Record reviewed to determine appropriate education?: Yes Instructions: ED Tendinitis Rotator Cuff Prescriptions: HYDROcod/ACETAM 5/325 [[place] 5/325] 1 - 2 tab PO Q6H PRN #15 tablet PRN Reason: Pain Comments: As discussed, today your symptoms and exam are consistent with a rotator cuff injury on the left. I do not think it is a full tear based on your exam, you can wear the sling for just a few days for comfort but you can come out of it as needed for the shoulder injury exercises you are used to doing for your other shoulder. Follow-up with your orthopedic surgeon within the week. Do not drink or drive while taking prescription pain killers. Discharge Date/Time: 03/25/20 13:23
[2020-03-25 13:23] VITALS: BP 145/79
== END 2020-03-25 13:23 | disposition home or self-care (01) ==
LOC: ED 11:31
DX: S43.422A Sprain of left rotator cuff capsule, initial encounter (principal); W10.9XXA Fall (on) (from) unspecified stairs and steps, initial encounter; I10 Essential (primary) hypertension; Z87.891 Personal history of nicotine dependence
CPT/HCPCS: 99283

== ENCOUNTER 2021-03-04 20:55 | Emergency (ER) | payer BC ==
[2021-03-04 21:04] VITALS: BP 166/84
[2021-03-04] MEDS ORDERED: diphenhydrAMINE 25 MG CAPSULE PO STA (21:17)
--- NOTE | 2021-03-04 21:21 | ED Physician Documentation ---
PD HPI SKIN - Stated complaint Stated Complaint: HIVES/ALLERGIC REACTION - Chief complaint Chief Complaint: Wound - History obtained from History obtained from: Patient - Additional information Additional information: 85-year-old man with No known allergies presents with nonpruritic rash to bilateral forearms and back of the neck starting 20 minutes after taking an amoxicillin pill. Patient was placed on amoxicillin for dental issues by his dentist and has completed 1 week without issues. patient endorses wearing a shirt that may have caused some irritation to the skin but knows of no other exp osure that could have caused the rash. has not taken benadryl . denies cp, soa, wheezing, n/v. Review of Systems Ten Systems: 10 systems reviewed and negative Constitutional: denies: Myalgias Throat: reports: Other (no throat tightness) Cardiac: denies: Chest pain / pressure Respiratory: denies: Dyspnea, Cough GI: denies: Nausea, Vomiting Skin: reports: Rash PD PAST MEDICAL HISTORY - Past Medical History Cardiovascular: Hypertension, High cholesterol, Deep vein thrombosis (As a teen after hip surgery) Respiratory: None Neuro: None Endocrine/Autoimmune: None GI: Ulcers (resolved), Chronic diarrhea : None HEENT: None Psych: Claustrophobia Musculoskeletal: Osteoarthritis, Chronic back pain (Currently getting RADHA) Derm: None - Past Surgical History Past Surgical History: Yes General: Colonoscopy, Other Ortho: Hip replacement, Rotator cuff repair, Other - Present Medications Home Medications: Ambulatory Orders Medication Instructions Recorded Confirmed Meloxicam 15 mg PO DAILY 04/25/18 03/04/21 Gabapentin [Neurontin] 600 mg PO TID 03/04/21 03/04/21 - Allergies Allergies/Adverse Reactions: Allergies Allergy/AdvReac Type Severity Reaction Status Date / Time No Known Drug Allergies Allergy Verified 03/04/21 21:04 - Social History Does the pt smoke?: No Smoking Status: Former smoker (Quit 5 years ago. 50 pack year history) Does the pt drink ETOH?: Yes Does the pt have substance abuse?: No - Immunizations Immunizations are current?: Yes - POLST Patient has POLST: No PD ED PE NORMAL - Vitals Vital signs reviewed: Yes - General General: Alert and oriented X 3, No acute distress, Well developed/nourished - HEENT HEENT: Atraumatic, PERRL, EOMI, Pharynx benign, Other (no signs of dental abscess. nontender) - Derm Derm: Normal color, Other (mild blanching raised fine rash to BL posterior forearms and posterior neck) Results - Vitals Vitals: Vital Signs - 24 hr 03/04/21 20:59 Temperature 36.7 C Heart Rate 52 L Respiratory 16 Rate Blood Pressure 166/84 H O2 Saturation 99 Oxygen O2 Source Room air PD MEDICAL DECISION MAKING - ED course ED course: 55yM presents with rash to BL forearms and back of the neck, improving without any medications. nonpruritic without any other signs of allergic reaction. since he is almost complete his course of amoxicillin he can hold off on the last couple pills and follow up with his dentist. recommended he also f/u with allergy and immunology but patient did not want a referral. return precautions discussed. Departure - Departure Disposition: 01 Home, Self Care Clinical Impression: Rash Condition: Good Instructions: Rash Skin Self Care Comments: You were seen in the emergency department for rash. Take Benadryl 50 mg every 6 hours as needed. Return to the emergency department if you experience chest pain, shortness of breath, throat tightening, wheezing, full body hives, severe itching, nausea and vomiting. Please also return if you have any other new or worsening symptoms or other concerns.
== END 2021-03-04 21:26 | disposition home or self-care (01) ==
LOC: ED 20:55
DX: R21 Rash and other nonspecific skin eruption (principal); Z87.891 Personal history of nicotine dependence; M54.9 Dorsalgia, unspecified; G89.29 Other chronic pain; I10 Essential (primary) hypertension
CPT/HCPCS: 99282; A9270

== ENCOUNTER 2022-02-16 10:59 | Outpatient (CLI) | payer OTHER ==
[2022-02-16 14:40] LABS: BASOPHILS % (AUTO) 0.4 %; EOSINOPHILS # (AUTO) 0.1 10^3/uL (0.0-0.7); EOSINOPHILS % (AUTO) 0.9 %; HCT - HEMATOCRIT 43.2 % (42.0-52.0); HGB - HEMOGLOBIN 13.9 g/dL (14.0-18.0); LYMPHOCYTES # (AUTO) 1.5 10^3/uL (1.5-3.5); LYMPHOCYTES % (AUTO) 21.8 %; MEAN CORPUSCULAR HEMOGLOBIN 29.6 pg (27.0-31.0); MEAN CORPUSCULAR HGB CONC 32.2 g/dL (32.0-36.0); MEAN CORPUSCULAR VOLUME 92.1 fL (80.0-94.0); MEAN PLATELET VOLUME 10.2 fL (7.4-11.4); MONOCYTES # (AUTO) 0.5 10^3/uL (0.0-1.0); MONOCYTES % (AUTO) 6.8 %; NEUTROPHILS # (AUTO) 4.7 10^3/uL (1.5-6.6); NEUTROPHILS % (AUTO) 69.8 %; PLT - PLATELET COUNT 285 10^3/uL (130-450); RED BLOOD COUNT 4.69 10^6/uL (4.70-6.10); RED CELL DISTRIBUTION WIDTH 12.6 % (12.0-15.0); WHITE BLOOD COUNT 6.7 x10^3/uL (4.8-10.8)
[2022-02-16 15:01] LABS: ALBUMIN 4.4 g/dL (3.2-5.5); ALBUMIN/GLOBULIN RATIO 1.7 (1.0-2.2); BILIRUBIN,TOTAL 0.6 mg/dL (0.2-1.0); CALCIUM 9.3 mg/dL (8.5-10.3); CREATININE 1.1 mg/dL (0.6-1.2); POTASSIUM 3.5 mmol/L (3.5-5.0)
== END 2022-02-16 11:00 | disposition home or self-care (01) ==
LOC: LAB.S 10:59
PROVIDERS: ATTEND Physician Assistant Medical
DX: Z51.81 Encounter for therapeutic drug level monitoring (principal); Z79.899 Other long term (current) drug therapy
CPT/HCPCS: 36415; 80053; 85025

== ENCOUNTER 2022-04-22 13:29 | Outpatient (CLI) | payer OTHER ==
[2022-04-22 20:38] LABS: BASOPHILS % (AUTO) 0.4 %; EOSINOPHILS # (AUTO) 0.1 10^3/uL (0.0-0.7); EOSINOPHILS % (AUTO) 1.4 %; HCT - HEMATOCRIT 41.2 % (42.0-52.0); HGB - HEMOGLOBIN 13.1 g/dL (14.0-18.0); LYMPHOCYTES # (AUTO) 1.9 10^3/uL (1.5-3.5); LYMPHOCYTES % (AUTO) 27.9 %; MEAN CORPUSCULAR HEMOGLOBIN 29.1 pg (27.0-31.0); MEAN CORPUSCULAR HGB CONC 31.8 g/dL (32.0-36.0); MEAN CORPUSCULAR VOLUME 91.6 fL (80.0-94.0); MEAN PLATELET VOLUME 9.9 fL (7.4-11.4); MONOCYTES # (AUTO) 0.5 10^3/uL (0.0-1.0); MONOCYTES % (AUTO) 7.5 %; NEUTROPHILS # (AUTO) 4.3 10^3/uL (1.5-6.6); NEUTROPHILS % (AUTO) 62.7 %; PLT - PLATELET COUNT 287 10^3/uL (130-450); RED CELL DISTRIBUTION WIDTH 13.2 % (12.0-15.0); WHITE BLOOD COUNT 6.9 x10^3/uL (4.8-10.8)
[2022-04-22 20:57] LABS: BUN - BLOOD UREA NITROGEN 19 mg/dL (6-20); CALCIUM 9.3 mg/dL (8.5-10.3); CARBON DIOXIDE - CO2 29 mmol/L (21-32); CHLORIDE 100 mmol/L (101-111); CHOLESTEROL 204 mg/dL; CREATININE 0.8 mg/dL (0.6-1.2); GFR - MDRD 101 (>89); GLUCOSE 93 mg/dL (70-100); HDL CHOLESTEROL 69 mg/dL; LDL CHOLESTEROL,CALCULATED 118 mg/dL; LDL/HDL RATIO 1.7 (<3.6); POTASSIUM 3.9 mmol/L (3.5-5.0); SODIUM 137 mmol/L (135-145); TRIGLYCERIDES 86 mg/dL; VLDL CHOLESTEROL 17 mg/dL
[2022-04-22 21:27] LABS: THYROID STIMULATING HORMONE 1.12 uIU/mL (0.34-5.60)
== END 2022-04-22 13:30 | disposition home or self-care (01) ==
LOC: LAB.S 13:29
PROVIDERS: ATTEND Registered Nurse
DX: Z51.81 Encounter for therapeutic drug level monitoring (principal); Z13.220 Encounter for screening for lipoid disorders; Z79.899 Other long term (current) drug therapy
CPT/HCPCS: 36415; 80048; 80061; 83721; 84443; 85025

== ENCOUNTER 2022-04-29 13:53 | Outpatient (CLI) | payer OTHER ==
--- NOTE | 2022-04-29 19:29 | XRAY Report ---
PROCEDURE: Lumbar Spine 2 View INDICATIONS: RADICULOPATHY TECHNIQUE: 3 views of the lumbar spine were acquired. COMPARISON: None. FINDINGS: Bones: 5 [id number] vertebrae are present. There is normal bony alignment. No suspicious bon y lesions. Disc space narrowing convex with right thoracolumbar scoliosis with marginal osteophytes present. Hypertrophic facet joints noted throughout the exam, particularly in the lower lumbar spine. Left total hip arthroplasty Soft tissues: Overlying bowel gas pattern is normal. No suspicious soft tissue calcifications. 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
== END 2022-04-29 13:54 | disposition home or self-care (01) ==
LOC: DI.S 13:53
PROVIDERS: ATTEND Registered Nurse
DX: M51.36 Other intervertebral disc degeneration, lumbar region (principal); M47.816 Spondylosis without myelopathy or radiculopathy, lumbar region; M41.9 Scoliosis, unspecified

== ENCOUNTER 2022-09-21 07:35 | Outpatient (CLI) | payer OTHER ==
--- NOTE | 2022-09-21 10:46 | MRI Report ---
PROCEDURE: LUMBAR SPINE WO INDICATIONS: LUMBAR STRAIN TECHNIQUE: Noncontrast sagittal T1 spin echo and T2 fast echo, sagittal STIR, axial T1 and T2 fast spin echo thr ough the lumbar spine. In cases with scoliosis, additional coronal T2 fast spin echo may be performe d. COMPARISON: Radiograph 04/29/2022, MRI 03/12/2018 FINDINGS: Image quality: Good Alignment: Trace retrolisthesis of L1 on L2 and anterolisthesis of L4 on L5. There is mild rightward spinal curvature. Marrow: A suspected hemangioma is again seen at L1. No acute fracture. Multilevel disc desiccation an d endplate deformities. Cord: Cord terminates in normal position. Normal appearance of the cauda equina nerve roots. Soft tissues: There are renal cysts. The more indeterminate lesion is seen measuring 3.1 cm in the le ft lower pole (/). Specific levels: T12-L1: Bilateral facet arthropathy. No stenosis. L1-L2: Small disc bulge. Mild to moderate facet arthropathy. Mild right and [id number] left cata ral foraminal narrowing. L2-L3: Moderate bilateral facet arthropathy. Diffuse disc bulge. The bulge extends to the left forami nal and extraforaminal region, with moderate left foraminal narrowing and mild right foraminal narrow ing. There is also mild narrowing of the left subarticular recess. L3-L4: Diffuse disc bulge and moderate facet arthropathy.. Mild to moderate central narrowing affecti ng both subarticular recesses. Mild to moderate left and mild right neural foraminal narrowing. L4-L5: Central protrusion and disc uncovering. Moderate severe facet arthropathy. Diffuse disc bulge. Mild to moderate central narrowing affecting both subarticular recesses. Minimal left and mild right neural foraminal narrowing. L5-S1: Small diffuse disc bulge. Moderate facet arthropathy. No stenosis. IMPRESSION: Overall moderate degenerative changes as described above, slightly progressed compared to 2018. Indeterminate left renal lesion measuring up to 3.1 cm at the lower pole, probably hemorrhagic or pro teinaceous cyst. Consider sonographic correlation versus renal mass protocol CT or MRI. Reviewed by: Antelmo Gleason MD on 09/21/2022 10:45 AM PDT Approved by: Antelmo Gleason MD on 09/21/2022 10:45 AM PDT Station ID: [id number]
== END 2022-09-21 07:36 | disposition home or self-care (01) ==
LOC: DI 07:35
PROVIDERS: ATTEND Orthopaedic Surgery
DX: S39.012A Strain of muscle, fascia and tendon of lower back, initial encounter (principal); M47.816 Spondylosis without myelopathy or radiculopathy, lumbar region; M47.817 Spondylosis without myelopathy or radiculopathy, lumbosacral region; N28.89 Other specified disorders of kidney and ureter

== ENCOUNTER 2023-06-02 08:53 | Emergency (ER) | payer OTHER ==
--- NOTE | 2023-06-02 09:31 | ED Physician Documentation ---
PD HPI BACK PAIN - Stated complaint Stated Complaint: BACK PX - Chief complaint Chief Complaint: Back Pain - History obtained from History obtained from: Patient - Additional information Additional information: 57-year-old gentleman with chronic back pain. Has seen a surgeon and surgery is recommended but he has been putting off for a bit. Not clear exactly what intervention was offered. He does not have daily back pain but has frequent back pain. 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 Yesterday during his usual daily drive home he developed more severe low back pain the normal with radiation down the leg and pain radiating to the bottom of the left foot. He denies injury, incontinence, saddle anesthesia, or fevers. He tried a muscle relaxer without relief. PD PAST MEDICAL HISTORY - Past Medical History Past Medical History: No Cardiovascular: Hypertension, High cholesterol, Deep vein thrombosis Respiratory: None Neuro: None Endocrine/Autoimmune: None GI: Ulcers, Chronic diarrhea : None HEENT: None Psych: Claustrophobia Musculoskeletal: Osteoarthritis, Chronic back pain Derm: None - Past Surgical History Past Surgical History: Yes General: Colonoscopy, Other Ortho: Hip replacement, Rotator cuff repair, Other - Present Medications Home Medications: Ambulatory Orders Medication Instructions Recorded Confirmed Meloxicam 15 mg PO DAILY 04/25/18 06/02/23 Gabapentin [Neurontin] 600 mg PO TID 03/04/21 06/02/23 Cyclobenzaprine [Flexeril] 10 mg PO TID PRN 06/02/23 06/02/23 Oxycodone HCl/Acetaminophen 1 - 2 each PO Q6H PRN #14 tablet 06/02/23 [Percocet 5-325 mg Tablet] - Allergies Allergies/Adverse Reactions: Allergies Allergy/AdvReac Type Severity Reaction Status Date / Time No Known Drug Allergies Allergy Verified 06/02/23 09:10 - Social History Does the pt smoke?: No Smoking Status: Former smoker Does the pt drink ETOH?: Yes Does the pt have substance abuse?: Yes Substance Use and Type: Marijuana - Immunizations Immunizations are current?: Yes - POLST Patient has POLST: No PD ED PE NORMAL - Vitals Vital signs reviewed: Yes - General General: Alert and oriented X 3, Other (Fairly comfortable at rest but winces significantly with motion.) - Abdomen Abdomen: Normal bowel sounds, Soft, Non tender - Back Back: Other (Tender to the lower lumbar spine) - Extremities Extremities: Other (The patient has equal and normal Achilles and patellar reflexes bilaterally. Normal sensation in all areas of the legs. Patient denies saddle anesthesia. Normal strength in flexion-extension at the ankles, knees, and flexion of the hips.) - Neuro Neuro: Alert and oriented X 3, Normal speech Results - Vitals Vitals: Vital Signs - 24 hr 06/02/23 06/02/23 06/02/23 09:10 09:42 11:01 Temperature 36.5 C Heart Rate 85 74 78 Respiratory 16 16 16 Rate Blood Pressure 174/96 H 165/99 H 132/82 H O2 Saturation 99 97 100 Oxygen O2 Source Room air - Rads (name of study) Limited retroperitoneal ultrasound showing simple cysts of the left kidney without concerning or malignant type findings. Relevant Findings:: Final report received PD Medical Decision Making - ED course ED course: I did note looking at the MRI of last year there was a lesion on the left kidney which the radiologist recommended further workup on. Specifically an indeterminate lesion of the left kidney measuring 3.1 cm. I asked the patient if this had ever been addressed and he said no so we did order a retroperitoneal ultrasound as he would like to have this worked up today. This patient has seemingly uncomplicated musculoskeletal back pain. The patient has no "red flags." Specifically denies IV drug use, fevers, incontinence, saddle anesthesia. Spinal epidural abscess was considered, given that the patient has no fever, is not diabetic, has no spinal tenderness, does not use IV drugs, and has no bilateral neurologic symptoms, the diagnosis of spinal epidural abscess is considered exceedingly unlikely. After the administration of 2 mg IM Dilaudid and 60 mg IM Toradol he was feeling much better albeit pain-free. Departure - Departure Disposition: 01 Home, Self Care Clinical Impression: Renal cyst Back pain Qualifiers: Back pain location: low back pain Chronicity: acute Back pain laterality: left Sciatica presence: with sciatica Sciatica laterality: sciatica of left side Qualified Code(s): M54.42 - Lumbago with sciatica, left side Condition: Good Record reviewed to determine appropriate education?: Yes Instructions: ED Low Back Pain Injury Prescriptions: Oxycodone HCl/Acetaminophen [Percocet 5-325 mg Tablet] 1 - 2 each PO Q6H PRN #14 tablet PRN Reason: pain Comments: The report from the [facility] specialist suggest that the cysts on your kidney are benign, but do mention them to your doctor for further evaluation and treatment. I sent your prescription electronically to the [facility] [place]. You can take ibuprofen or Aleve along with that as well which are available [id number]. Call your doctor to arrange a follow-up appointment, make the next available appointment. In the interim, return anytime if worse or if new symptoms develop. I am prescribing a short course of narcotic pain medication for you. These are p otentially dangerous and addictive medications that should be used carefully. These medications may constipate you. Take an [id number] stool softener (docusate) twice daily with plenty of water while taking these medications. If you go 24 hours without a bowel movement, take [id number] miralax, per package instructions. Do not drink or drive while taking these medications. If you received narcotic or sedating medications while in the emergency department, do not drive for 24 hours. Store this medication in a safe, secure place and out of reach of children. It is a violation of federal law to give or sell this medication to another person or to use in a manner other than prescribed. The ED will not refill narcotic prescriptions, including prescriptions lost or stolen. To dispose of unwanted medications: 1. [facility] provides a drop box for medication in pill form only (no liquids) 8:00 am to 4:30 p.m. Wednesday-Wednesday in the lobby of the [facility], [address] [place] [address]. Empty pills into ziplock bag before disposal. Call [phone] for information. 2.[employer] is a free service available to all [facility] residents. Go to [email or web address] Note that many narcotic pain relievers also contain Tylenol/acetaminophen. Please ensure that your total dose of acetaminophen from all sources does not exceed 3 g (3000 mg) per day. Forms: Activity restrictions Discharge Date/Time: 06/02/23 11:11
[2023-06-02] MEDS: KETOROLAC 60 MG/2 ML VIAL IM STA (09:39)
[2023-06-02] MEDS: HYDROmorphone 1 MG/ML CARPUJECT IM STA (09:40)
[2023-06-02 11:06] VITALS: BP 132/82; O2SAT 100
--- NOTE | 2023-06-02 11:23 | Ultrasound Report ---
PROCEDURE: Renal Ltd (Retroperitoneal Ltd INDICATIONS: left kidney lesion TECHNIQUE: Real-time scanning was performed of the left kidney, with image documentation. COMPARISON: MRI of lumbar spine dated 09/21/2022. FINDINGS: Kidneys: Left kidney measures 11.3 cm long. Left renal cortical thickness is 0.9 cm. 3 simple appeari ng left renal cysts are seen measures up to 3.4 x 3.5 x 3.6 cm in size in mid to lower pole left kidn ey. No solid masses, hydronephrosis, or nephrolithiasis. Miscellaneous: No free abdominal fluid. IMPRESSION: Limited evaluation of left kidney shows 3 simple appearing left renal cysts measures up to 3.4 x 3.5 x 3.6 cm in size. No solid-appearing renal lesion. No hydronephrosis. Reviewed by: Juan Torres MD on 06/02/2023 11:21 AM PST Approved by: Juan Torres MD on 06/02/2023 11:21 AM PST Station ID: [id number]
== END 2023-06-02 11:11 | disposition home or self-care (01) ==
LOC: ED 08:53
DX: M54.42 Lumbago with sciatica, left side (principal); N28.1 Cyst of kidney, acquired; G89.29 Other chronic pain; I10 Essential (primary) hypertension; Z87.891 Personal history of nicotine dependence
CPT/HCPCS: 76775; 99283; 99284; J1170

== ENCOUNTER 2023-08-02 08:02 | Outpatient (CLI) | payer OTHER ==
[2023-08-02 14:24] LABS: BASOPHILS % (AUTO) 0.5 %; EOSINOPHILS # (AUTO) 0.1 10^3/uL (0.0-0.7); EOSINOPHILS % (AUTO) 1.5 %; HCT - HEMATOCRIT 41.2 % (42.0-52.0); HGB - HEMOGLOBIN 13.4 g/dL (14.0-18.0); LYMPHOCYTES # (AUTO) 1.4 10^3/uL (1.5-3.5); LYMPHOCYTES % (AUTO) 23.5 %; MEAN CORPUSCULAR HEMOGLOBIN 29.1 pg (27.0-31.0); MEAN CORPUSCULAR HGB CONC 32.5 g/dL (32.0-36.0); MEAN CORPUSCULAR VOLUME 89.6 fL (80.0-94.0); MEAN PLATELET VOLUME 9.7 fL (7.4-11.4); MONOCYTES # (AUTO) 0.5 10^3/uL (0.0-1.0); MONOCYTES % (AUTO) 7.8 %; NEUTROPHILS % (AUTO) 66.4 %; PLT - PLATELET COUNT 296 10^3/uL (130-450); RED CELL DISTRIBUTION WIDTH 13.5 % (12.0-15.0)
[2023-08-02 14:46] LABS: ALBUMIN 4.4 g/dL (3.2-5.5); ALBUMIN/GLOBULIN RATIO 1.8 (1.0-2.2); ALKALINE PHOSPHATASE 73 IU/L (42-121); ALT ALANINE AMINOTRANSFERASE 37 IU/L (10-60); AST ASPARTATE AMINOTRANSFERASE 21 IU/L (10-42); BILIRUBIN,TOTAL 0.8 mg/dL (0.2-1.0); BUN - BLOOD UREA NITROGEN 24 mg/dL (6-20); CALCIUM 9.8 mg/dL (8.5-10.3); CARBON DIOXIDE - CO2 28 mmol/L (21-32); CHLORIDE 105 mmol/L (101-111); CHOLESTEROL 203 mg/dL; CREATININE 0.9 mg/dL (0.6-1.3); GFR - MDRD 87 (>89); GLUCOSE 125 mg/dL (74-104); HDL CHOLESTEROL 68 mg/dL; LDL CHOLESTEROL,CALCULATED 96 mg/dL; LDL/HDL RATIO 1.4 (<3.6); POTASSIUM 3.8 mmol/L (3.5-4.5); SODIUM 140 mmol/L (135-145); TOTAL PROTEIN 6.9 g/dL (6.4-8.9); TRIGLYCERIDES 195 mg/dL (48-352); VLDL CHOLESTEROL 39 mg/dL
== END 2023-08-02 08:03 | disposition home or self-care (01) ==
LOC: LAB.S 08:02
PROVIDERS: ATTEND Registered Nurse
DX: Z12.5 Encounter for screening for malignant neoplasm of prostate (principal); Z13.228 Encounter for screening for other metabolic disorders; E78.5 Hyperlipidemia, unspecified; Z13.0 Encounter for screening for diseases of the blood and blood-forming organs and certain disorders involving the immune mechanism
CPT/HCPCS: 36415; 80053; 80061; 83721; 84153; 85025

== ENCOUNTER 2023-10-22 12:59 | Outpatient (CLI) | payer OTHER ==
[2023-10-22 19:56] LABS: HGB - HEMOGLOBIN 13.6 g/dL (14.0-18.0); MEAN CORPUSCULAR HEMOGLOBIN 28.3 pg (27.0-31.0); MEAN CORPUSCULAR HGB CONC 31.6 g/dL (32.0-36.0); MEAN CORPUSCULAR VOLUME 89.4 fL (80.0-94.0); MEAN PLATELET VOLUME 9.8 fL (7.4-11.4); RED BLOOD COUNT 4.81 10^6/uL (4.70-6.10); RED CELL DISTRIBUTION WIDTH 13.1 % (12.0-15.0); WHITE BLOOD COUNT 7.5 x10^3/uL (4.8-10.8)
[2023-10-22 20:13] LABS: CALCIUM 10.1 mg/dL (8.5-10.3); CREATININE 0.9 mg/dL (0.6-1.3); POTASSIUM 3.8 mmol/L (3.5-4.5)
== END 2023-10-22 13:00 | disposition home or self-care (01) ==
LOC: LAB.S 12:59
PROVIDERS: ATTEND Emergency Medicine
DX: R60.0 Localized edema (principal)
CPT/HCPCS: 36415; 80048; 83880; 85027; 85379